=== PATIENT | female | born 2000 | race Caucasian/White ===

== ENCOUNTER 2022-05-31 19:53 | Emergency (ER) | payer OTHER ==
[2022-05-31 20:38] VITALS: BP 103/67; PULSE 59; RESP 20; TEMP 98.2; BMI 25.0
[2022-05-31] MEDS ORDERED: HIV POST EXPOSURE PROPHYLAXIS KIT NR ONE (21:12)
[2022-05-31] MEDS ORDERED: DIPHTH,PERTUSS(ACELL),TET 0.5 ML DISP.SYRIN IM ONE ×2 (21:12→21:22)
[2022-05-31] MEDS ORDERED: HIV POST EXPOSURE PROPHYLAXIS KIT PO ONE (21:21)
[2022-05-31] MEDS ORDERED: IBUPROFEN 600 MG TABLET (FP) PO ONE (21:22)
[2022-05-31 21:44] LABS: BASO % 0.4 % (0-2.0); EOS % 3.9 % (0-4.5); HEMATOCRIT 37.6 % (32.4-45.2); HEMOGLOBIN 12.8 GM/dL (10.7-15.3); LYMPH % 38.6 % (8-40); MCH 29.7 pg (25.7-33.7); MCHC 34.1 g/dl (32.0-36.0); MEAN PLT VOLUME 7.8 fl (7.5-11.1); MONO % 8.3 % (3.8-10.2); NEUT % 48.8 % (42.8-82.8); PLATELET COUNT 283 10^3/uL (134-434); RBC 4.32 M/mm3 (3.60-5.2); RDW 12.8 % (11.6-15.6)
[2022-05-31 22:04] LABS: CALCIUM 9.1 mg/dL (8.5-10.1)
[2022-05-31 22:05] LABS: ALBUMIN 4.2 g/dl (3.4-5.0)
[2022-05-31 22:06] LABS: BLOOD UREA NITROGEN 18.2 mg/dL (7-18)
[2022-05-31 22:08] LABS: CREATININE 0.5 mg/dL (0.55-1.3); URIC ACID 2.5 mg/dL (2.6-7.2)
[2022-05-31 22:09] LABS: PHOSPHOROUS 4.3 mg/dL (2.5-4.9)
[2022-05-31 22:11] LABS: BILIRUBIN,TOTAL 0.5 mg/dL (0.2-1)
[2022-05-31] MEDS ORDERED: AMOX TR/POT CLAV 875MG/125MG TABLETS (FP) PO ONE (22:32)
[2022-05-31] MEDS ORDERED: AMOX TR/POT CLAV 875MG/125MG TABLETS (FP) ONE (22:34)
[2022-06-01 14:47] LABS: HIV INTERPRETATION NEGATIVE (NEGATIVE)
== END 2022-05-31 22:38 | disposition home or self-care (01) ==
LOC: JERFT 19:53
PROC: 3E0234Z Introduction of Serum, Toxoid and Vaccine into Muscle, Percutaneous Approach (ICD-10-PCS; principal; 2022-05-31)
DX: S81.811A Laceration without foreign body, right lower leg, initial encounter (principal); W26.8XXA Contact with other sharp object(s), not elsewhere classified, initial encounter; Z77.21 Contact with and (suspected) exposure to potentially hazardous body fluids
CPT/HCPCS: 36415; 80053; 82465; 82977; 83615; 84100; 84478; 84550; 84703; 85025; 86704; 86803; 87340; 87389; 87517; 90715; 99284-25

== ENCOUNTER 2022-06-13 16:08 | Emergency (ER) | payer OTHER ==
[2022-06-13 16:40] VITALS: BP 97/58; PULSE 67; RESP 18; TEMP 98.2; BMI 21.9
== END 2022-06-13 17:10 | disposition home or self-care (01) ==
LOC: JERFT 16:08
DX: Z48.02 Encounter for removal of sutures (principal)
CPT/HCPCS: 99281-25